=== PATIENT | male | born 1985 | race Caucasian/White ===

== ENCOUNTER 2019-07-25 18:10 | Emergency (ER) | payer BC ==
[2019-07-25 21:47] LABS: ABS Lymphocytes 1.5 10^3/ul (1.0-4.8); ABS Monocytes 0.4 10^3/ul (0-0.8); ABS Neutrophils 2.3 10^3/ul (1.5-7.7); Eosinophil % 0.5 %; Hematocrit 41 % (42-52); Hemoglobin 14.4 g/dL (14.0-18.0); Lymphocyte % 35.5 %; Mean Corpuscular HGB Conc 35 g/dL (31-36); Mean Corpuscular Hemoglobin 32 pg (27-31); Mean Corpuscular Volume 92 fL (80-94); Mean Platelet Volume 8.3 fL (7.4-10.4); Nucleated Red Blood Cells % 0.1; Platelet Count 139 10^3/uL (150-450); Red Cell Distribution Width 13 % (10-15); White Blood Count 4.1 10^3/uL (3.5-10.8)
--- NOTE | 2019-07-25 21:47 | ED ---
Bite Injury/Animal - HPI Summary HPI Summary: This pt is a 33 Y/O M presenting to [facility] with a CC of R leg pain and swelling following a dog bite that happened 2 weeks [employer] and is currently rated a 6/10 in severity. He states that his leg began hurting from his ankle to his knee following work today. He states that he took a bath hoping to calm down his pain with no effect. He states that he then developed chest pain with chills and lightheadedness but states that he does not know if he has a fever. He also states that he has joint pain. He states that he has nausea but denies any vomiting. He states that he has been eating healthier than normal. He recently visited urgent care for similar symptoms on Monday and was placed on ABX treatment since Monday07/23/19. He states that the dog bit him on his R ankle. He states that he has no pertinent PMHx and denies any drug use. He has no aggravating or alleviating factors. - History of Current Complaint Chief Complaint: EDGeneral Stated Complaint: LEG/KNEE PAIN AFTER DOG BITE PER PT Time Seen by Provider: 07/25/19 21:21 Hx Obtained From: Patient Onset of Injury: Happened weeks ago - 2, Still Present Type of Bite: Pet - dog Hx of Bite: Unprovoked Has Animal Been Immunized?: Yes Severity Initially: Moderate Severity Currently: Moderate Pain Intensity: 5 Pain Scale Used: 0-10 Numeric Character: Abrasion/Laceration Aggravating Factor(s): Nothing Alleviating Factor(s): Nothing Associated Signs And Symptoms: Positive: Swelling - R knee. Negative: Fever - Allergies/Home Medications Allergies/Adverse Reactions: Allergies Allergy/AdvReac Type Severity Reaction Status Date / Time No Known Allergies Allergy Verified 07/25/19 18:18 Home Medications: Home Medications Amoxicillin/Clavulanate TAB* [Augmentin TAB 875*] 875 mg PO BID 07/25/19 [ History Confirmed 07/25/19] PMH/Surg Hx/FS Hx/Imm Hx Previously Healthy: Yes Endocrine/Hematology History: Denies: Hx Diabetes Cardiovascular History: Denies: Hx Hypertension Sensory History: Denies: Hx Contacts or Glasses Opthamlomology History: Denies: Hx Contacts or Glasses - Cancer History Hx Hematologic Symptoms: No Hx Chemotherapy: No Hx Radiation Therapy: No Hx Palliative Cancer Treatment: No - Surgical History Surgical History: Yes Surgery Procedure, Year, and Place: hernia repair when he was a child - Immunization History Immunizations Up to Date: Yes Infectious Disease History: No Infectious Disease History: Denies: Traveled Outside the [place] in Last 30 Days - Family History Known Family History: Negative: Hypertension, Diabetes - Social History Occupation: Employed Full-time Lives: With Family Alcohol Use: Daily Alcohol Amount: 1 drink/day Hx Substance Use: No Substance Use Type: Reports: None Hx Tobacco Use: No Smoking Status (MU): Never Smoked Tobacco Review of Systems - ROS Summary Review of Systems Summary: Home Medications Medication Instructions Recorded Confirmed Type Amoxicillin/Clavulanate TAB* 875 mg PO BID 07/25/19 07/25/19 History [Augmentin TAB 875*] Constitutional: Other - lightheadedness Positive: Chills. Negative: Fever Positive: Chest Pain Positive: Nausea. Negative: Vomiting Musculoskeletal: Other - R leg swelling Positive: Arthralgia, Myalgia - R knee and leg pain Skin: Other - bite martinez from dog on lateral and medial R ankle All Other Systems Reviewed And Are Negative: Yes Physical Exam - Summary Physical Exam Summary: General: Well-developed, Well-nourished male. No acute distress. HEENT: Normocephalic, Atraumatic. Eyes: Conjuctiva normal, PERRL. Ears: TMs within normal limits. Nares: (-) discharge, (-) erythema. Oropharynx: Clear, mucous membranes moist, (-) exudates. Neck: Soft, FROM, (-) lymphadenopathy, (-) thyromegaly, (-) JVD. Cardiovascular: Normal sinus rhythm, (-) murmur. Lungs: Clear to auscultation bilaterally (-) wheezes, (-) rales, (-) rhonchi. Abdomen: Soft, non-tender, non-distended, (-) organomegaly, normal bowel sounds. Back: (-) CVA tenderness Extremities: No edema. R foot shows 3 superficial lacerations on the medial surface, mild erythema no drainage. Mild laceration on the lateral surface of the R foot Skin: Warm, dry, (-) rash. No significant swelling or warmth of the areas Neuro: Alert and oriented x3, no focal deficits. Psychiatric: Mood normal, affect normal. Triage Information Reviewed: Yes Vital Signs On Initial Exam: Initial Vitals Temp Pulse Resp BP Pulse Ox 98.4 F 76 16 139/86 99 07/25/19 18:14 07/25/19 18:14 07/25/19 18:14 07/25/19 18:14 07/25/19 18:14 Vital Signs Reviewed: Yes Procedures - Sedation Patient Received Moderate/Deep Sedation with Procedure: No Diagnostics - Vital Signs Vital Signs Temp Pulse Resp BP Pulse Ox 07/25/19 20:30 98.4 F 66 18 142/77 97 07/25/19 18:14 98.4 F 76 16 139/86 99 - Laboratory Result Diagrams: 07/25/19 21:34 07/25/19 21:34 Lab Statement: Any lab studies that have been ordered have been reviewed, and results considered in the medical decision making process. Re-Evaluation - Re-Evaluation First Eval Re-Evaluation Time: 22:36 Change: Improved Comment: Pt's temperature was retaken and he does not have a fever. He will be discharged home. Bite Injury Course/Dx - Course Course Of Treatment: 33-year-old male presents with chills and chest pain. He states he currently has been on Augmentin for about 48 hours for the bite he sustained last week. He states he was feeling worse tonight. Had chills. Became quite nervous about the infection. Came in for reevaluation. No fever upon presentation. Workup essentially normal although nondiagnostic. Patient discharged home. Continue Augmentin. Plenty of fluids and rest. Follow up with PCP. Follow-up sooner for any worsening symptoms. - Diagnoses Provider Diagnosis: Cellulitis Discharge ED - Sign-Out/Discharge Documenting (check all that apply): Patient Departure - discharge - Discharge Plan Condition: Stable Disposition: HOME Patient Education Materials: Cellulitis (ED) Referrals: [facility] [Outside] - 2 Days Additional Instructions: PLEASE FOLLOW UP WITH THE [facility] IN THE NEXT 1-3 DAYS TO BE GIVEN A PRIMARY CARE PROVIDER IF YOU DO NOT ALREADY HAVE ONE BACK IN [place]. RETURN TO A HOSPITAL IF YOU HAVE ANY WORSENING OR NEW SYMPTOMS. Continue taking the Augmentin as directed. - Billing Disposition and Condition Condition: STABLE Disposition: Home - Attestation Statements Document Initiated by Scribe: Yes Documenting Scribe: Ozzy Sadler Provider For Whom Scribe is Documenting (Include Credential): Inez Gayle MD Scribe Attestation: I, Ozzy Sadler, scribed for Inez Gayle MD on 07/26/19 at 0048. Scribe Documentation Reviewed: Yes Provider Attestation: The documentation as recorded by the scribeOzzy accurately reflects the service I personally performed and the decisions made by me, Inez Gayle MD Status of Scribe Document: Viewed
[2019-07-25 22:04] LABS: Albumin 4.5 g/dL (3.2-5.2); BUN/Creatinine Ratio 16.5 (8-20); Calcium 9.8 mg/dL (8.6-10.3); EGFR African American 106.6 (>60); EGFR Non-African American 88.1 (>60); Globulin 2.3 g/dL (2-4); Potassium 3.8 mmol/L (3.5-5.0); Total Bilirubin 0.8 mg/dL (0.2-1.0); Total Protein 6.8 g/dL (6.4-8.9)
[2019-07-25 22:46] VITALS: BP 114/63
== END 2019-07-25 22:46 | disposition home or self-care (01) ==
LOC: ED 18:10
DX: L03.115 Cellulitis of right lower limb (principal)
CPT/HCPCS: 36415; 80053; 83605; 84484; 85025; 93005; 99282